=== PATIENT | female | born 1965 | race Caucasian/White ===

== ENCOUNTER 2017-09-07 19:03 | Emergency (ER) | payer BC ==
[~2017-09-07] VITALS: Ht 167.6 cm; Wt 79.8 kg
[2017-09-07 19:09] VITALS: BP 144/88; Ht 167.6 cm; Wt 79.8 kg
== END 2017-09-07 20:05 | disposition home or self-care (01) ==
LOC: ED 19:03
DX: S61.211A Laceration without foreign body of left index finger without damage to nail, initial encounter (principal); W26.0XXA Contact with knife, initial encounter; Y93.G3 Activity, cooking and baking; Y99.8 Other external cause status; Y92.090 Kitchen in other non-institutional residence as the place of occurrence of the external cause